=== PATIENT | female | born 1945 | race Caucasian/White ===

== ENCOUNTER 2016-10-21 09:10 | Inpatient (IN) | payer OTHER ==
[~2016-10-21] VITALS: Ht 165.1 cm; Wt 84.8 kg
--- NOTE | ~2016-10-21 | OP ---
[address] [address] OPERATIVE REPORT Name: CLAUDY BRUNO Room: [address] M.R.#: [id number] Admission: 01/27/17 Attend Phys: Doug Teresa MD Discharge: Date of : 45 Report #: [id number] THIS REPORT FOR: //name// Please see the post operative note. By: 0645Medical Records Staff DIANE /BOO
[2017-01-22] MEDS ORDERED: TOPAMAX 100 MG100 MG PO (10:57)
[2017-01-22] MEDS ORDERED: RIZATRIPTAN10 MG PO (10:58)
[2017-01-22] MEDS ORDERED: INDERAL LA120 M1 PO (11:04)
[2017-01-22] MEDS ORDERED: OMEPRAZOLE40 MG PO (11:05)
[2017-01-22] MEDS ORDERED: LISINOPRIL20 MG PO (11:05)
[2017-01-22] MEDS ORDERED: MACRODANTIN50 M1 PO (11:05)
[2017-01-22] MEDS ORDERED: PROZAC10 MG PO (11:06)
[2017-01-22] MEDS ORDERED: ATORVASTATIN CA40 MG PO (11:06)
[2017-01-22] MEDS ORDERED: GABAPENTIN 100100 MG PO (11:07)
[2017-01-22] MEDS ORDERED: XYZAL5 MG PO (11:08)
[2017-01-22] MEDS ORDERED: ALIGN4 MG PO (11:08)
[2017-01-22] MEDS ORDERED: DIPHENHIST50 MG PO (11:09)
[2017-01-22] MEDS ORDERED: CO Q-10100 MG PO (11:10)
[2017-01-22] MEDS ORDERED: ASPIR 8181 MG PO (11:10)
[2017-01-22] MEDS ORDERED: VITAMIN D1000 UNI1 PO (11:10)
[2017-01-22] MEDS ORDERED: GLUCOSAMINE-CH1 EA33 PO (11:11)
[2017-01-27 06:58] LABS: HEMATOCRIT 48.1 % (37.0-47.0); HEMOGLOBIN 16.1 gm/dL (12.0-15.0); MCH 31.8 pg (26.0-34.0); MCHC 33.6 g/dL (28.0-37.0); MCV 94.5 fL (80.0-100.0); RBC 5.08 mil/uL (4.20-5.00); WBC 10.1 thou/uL (4.0-11.0)
[2017-01-27 07:00] LABS: CALCIUM 8.7 mg/dL (8.5-10.1); POTASSIUM 3.9 mmol/L (3.5-5.1)
[2017-01-27 07:05] LABS: ALBUMIN 3.7 g/dL (3.4-5.0); TOTAL BILIRUBIN 0.4 mg/dL (<0.1-1.0); TOTAL PROTEIN 6.6 g/dL (6.4-8.2)
[2017-01-27 07:36] VITALS: BP 154/57
[2017-01-27 12:30] VITALS: BP 101/64
[2017-01-27 16:00] VITALS: BP 116/68
--- NOTE | 2017-01-27 16:01 | EKG ---
[place] [address] ELECTROCARDIOGRAM REPORT Name: CLAUDY BRUNO Room: [address] IN .R.#: [id number] Admission: 01/27/17 Attend Phys: Sherry Spicer Discharge: Date of : 45 Report #: [id number] THIS REPORT FOR: //name// [facility] Test Date: 2017-01-27 Test Time: 07:24:57 Pat Name: CLAUDY BRUNO Department: Room: [facility] Gender: Auditor In Charge: : 1945 Requested By: Doug Teresa Order Number: [id number] MD: Franco Khan Measurements Intervals [place] Rate: 66 P: 15 ND: 181 QRS: 60 QRSD: 119 T: -24 QT: 437 QTc: 458 Interpretive Statements Sinus rhythm Incomplete right bundle branch block Low voltage, precordial leads No previous ECG available for comparison Electronically Signed On 01-27-2017 16:01:07 [employer] by Franco Khan [email or web address] <ELECTRONICALLY SIGNED> By: Franco Khan MD, [facility] 01/27/17 1601 3 3 Franco Khan MD, FAC /EPI
[2017-01-27 20:00] VITALS: BP 94/62
[2017-01-28 00:33] VITALS: BP 110/76
[2017-01-28 03:52] VITALS: BP 93/46
[2017-01-28 04:25] LABS: POTASSIUM 4.9 mmol/L (3.5-5.1)
[2017-01-28 04:26] LABS: HEMATOCRIT 44.9 % (37.0-47.0); HEMOGLOBIN 14.4 gm/dL (12.0-15.0)
[2017-01-28 07:45] VITALS: BP 118/64
[2017-01-28 08:18] LABS: CALCIUM 8.1 mg/dL (8.5-10.1); POTASSIUM 4.9 mmol/L (3.5-5.1)
[2017-01-28 08:19] LABS: CREATININE 2.8 mg/dL (0.6-1.3)
[2017-01-28 16:42] LABS: CALCIUM 7.5 mg/dL (8.5-10.1); CREATININE 3.1 mg/dL (0.6-1.3); POTASSIUM 4.3 mmol/L (3.5-5.1)
[2017-01-28 18:11] LABS: URINE BILIRUBIN NEGATIVE (Negative); URINE BLOOD 3+ (Negative); URINE CLARITY CLOUDY; URINE COLOR YELLOW; URINE GLUCOSE-RANDOM NEGATIVE (Negative); URINE KETONES 1+ (Negative); URINE LEUKOCYTES-REFLEX 2+ (Negative); URINE NITRITE-REFLEX NEGATIVE (Negative); URINE PROTEIN 2+ (Negative); URINE SPECIFIC GRAVITY >= 1.030 (1.005-1.030); URINE UROBILINOGEN 0.2 E.U./dl (0.2-1.0)
[2017-01-28 18:21] LABS: CRYSTALS None Seen /LPF (None Seen); HYALINE CASTS 0-3 Few /LPF (None Seen); MUCUS 0-3 Light strn/LPF (None Seen); SQUAMOUS 0-3 Few /LPF (0-3)
[2017-01-28 18:22] LABS: URINE RBC >20 Many /HPF (0-2); URINE WBC-REFLEX >25 Many /HPF (0-5)
[2017-01-28 18:23] LABS: BACTERIA-REFLEX 1-9 Few /HPF (None Seen)
[2017-01-28 21:00] VITALS: BP 122/50
[2017-01-29 00:05] VITALS: BP 127/55
[2017-01-29 03:37] LABS: HEMATOCRIT 40.5 % (37.0-47.0); MCH 31.1 pg (26.0-34.0); MCHC 32.1 g/dL (28.0-37.0); MCV 96.8 fL (80.0-100.0); MPV 8.3 fl. (7.2-11.1); RBC 4.19 mil/uL (4.20-5.00); RDW-CV 14.5 % (10.5-14.5); WBC 11.7 thou/uL (4.0-11.0)
[2017-01-29 03:45] LABS: CALCIUM 7.4 mg/dL (8.5-10.1); MAGNESIUM 1.8 mg/dL (1.8-2.4); POTASSIUM 4.2 mmol/L (3.5-5.1)
[2017-01-29 03:48] LABS: CREATININE 2.1 mg/dL (0.6-1.3)
[2017-01-29 03:51] VITALS: BP 98/46
[2017-01-29 08:00] VITALS: BP 118/72
[2017-01-29 10:46] LABS: BE -6.5 mmol/L (-2 to +3); HCO3 19.8 mmol/L (22.0-26.0); PCO2 42.4 mmHg (35.0-45.0); PO2 102.5 mmHg (75.0-100.0)
[2017-01-29 10:50] LABS: pH 7.288 (7.340-7.450)
[2017-01-29 16:10] VITALS: BP 104/46
[2017-01-29 20:00] VITALS: BP 105/35
[2017-01-29 23:20] VITALS: BP 110/59
[2017-01-30 03:17] VITALS: BP 113/51
[2017-01-30 04:27] LABS: HEMATOCRIT 35.1 % (37.0-47.0); HEMOGLOBIN 11.7 gm/dL (12.0-15.0); MCH 32.2 pg (26.0-34.0); MCHC 33.4 g/dL (28.0-37.0); MCV 96.4 fL (80.0-100.0); MPV 8.1 fl. (7.2-11.1); RBC 3.64 mil/uL (4.20-5.00); RDW-CV 13.8 % (10.5-14.5); WBC 8.4 thou/uL (4.0-11.0)
[2017-01-30 04:40] LABS: CALCIUM 7.5 mg/dL (8.5-10.1); POTASSIUM 3.9 mmol/L (3.5-5.1)
[2017-01-30 04:49] LABS: CREATININE 1.1 mg/dL (0.6-1.3)
[2017-01-30 08:00] VITALS: BP 142/69
[2017-01-30 15:33] VITALS: BP 136/75
[2017-01-30 20:00] VITALS: BP 158/74
[2017-01-31 01:22] VITALS: BP 157/73
[2017-01-31 04:17] LABS: HEMATOCRIT 37.3 % (37.0-47.0); HEMOGLOBIN 12.4 gm/dL (12.0-15.0); MCHC 33.3 g/dL (28.0-37.0); MCV 96.1 fL (80.0-100.0); MPV 8.5 fl. (7.2-11.1); RBC 3.88 mil/uL (4.20-5.00); RDW-CV 13.8 % (10.5-14.5); WBC 7.3 thou/uL (4.0-11.0)
[2017-01-31 04:31] VITALS: BP 112/53
[2017-01-31 04:31] LABS: ALBUMIN 2.6 g/dL (3.4-5.0); CALCIUM 8.4 mg/dL (8.5-10.1); PHOSPHORUS* 2.5 mg/dL (2.5-4.9); POTASSIUM 3.9 mmol/L (3.5-5.1)
[2017-01-31 08:00] VITALS: BP 146/70
[2017-01-31] MEDS ORDERED: LEVAQUIN 750 M750 MG PO (12:10)
[2017-01-31] MEDS ORDERED: TRANSDERM-SCOP1 EACH TRANSDERM (12:10)
[2017-01-31] MEDS ORDERED: TRAMADOL 50 MG50 MG PO (12:10)
[2017-01-31] MEDS ORDERED: LIDOPATCH1 EACH TOP (12:10)
[2017-01-31 15:38] VITALS: BP 162/71
[2017-01-31 20:00] VITALS: BP 156/68
[2017-02-01 05:51] LABS: HEMATOCRIT 40.1 % (37.0-47.0); HEMOGLOBIN 13.5 gm/dL (12.0-15.0); MCH 32.2 pg (26.0-34.0); MCHC 33.7 g/dL (28.0-37.0); MCV 95.5 fL (80.0-100.0); RBC 4.2 mil/uL (4.20-5.00); RDW-CV 14.1 % (10.5-14.5); WBC 8.4 thou/uL (4.0-11.0)
[2017-02-01 06:15] LABS: CALCIUM 8.8 mg/dL (8.5-10.1); CREATININE 0.9 mg/dL (0.6-1.3); POTASSIUM 3.7 mmol/L (3.5-5.1)
[2017-02-01 08:00] VITALS: BP 151/71
[2017-02-01 13:16] VITALS: BP 151/71
[2017-02-01 13:49] VITALS: BP 151/71
== END 2017-02-01 13:50 | disposition home or self-care (01) | DRG 748 ==
LOC: M.SUR 09:10 → M.TBA 01-27 06:32 → M.ORTHSURG 01-27 06:32 → EDSTATUS 01-27 07:39 → M.SUR 01-27 08:00 → M.ORTHSURG 01-27 12:23 → M.2W 01-27 13:45 → M.ORTHSURG 01-29 14:26
PROVIDERS: Internal Medicine; ADMIT Specialist
PROC: 0JQC0ZZ Repair Pelvic Region Subcutaneous Tissue and Fascia, Open Approach (ICD-10-PCS; principal; 2017-01-27)
PROC: 0USG8ZZ Reposition Vagina, Via Natural or Artificial Opening Endoscopic (ICD-10-PCS; principal; 2017-01-27)
DX: N99.3 Prolapse of vaginal vault after hysterectomy (principal); N17.9 Acute kidney failure, unspecified; N39.0 Urinary tract infection, site not specified; E87.2 Acidosis; I12.0 Hypertensive chronic kidney disease with stage 5 chronic kidney disease or end stage renal disease; E86.0 Dehydration; F41.9 Anxiety disorder, unspecified; G89.29 Other chronic pain; R39.89 Other symptoms and signs involving the genitourinary system; R53.82 Chronic fatigue, unspecified; E78.5 Hyperlipidemia, unspecified; M19.90 Unspecified osteoarthritis, unspecified site; G43.909 Migraine, unspecified, not intractable, without status migrainosus; R73.03 Prediabetes; R40.0 Somnolence; N18.3 Chronic kidney disease, stage 3 (moderate); R19.7 Diarrhea, unspecified; Z90.710 Acquired absence of both cervix and uterus; Z90.722 Acquired absence of ovaries, bilateral; Z90.49 Acquired absence of other specified parts of digestive tract; Z79.82 Long term (current) use of aspirin; Z79.899 Other long term (current) drug therapy